=== PATIENT | female | born 1995 | race Caucasian/White ===

== ENCOUNTER 2018-05-13 21:26 | Emergency (ER) | payer OTHER ==
[~2018-05-13] VITALS: Ht 154.9 cm; Wt 85.7 kg
[2018-05-13 22:00] VITALS: Ht 154.9 cm; Wt 85.7 kg
[2018-05-13 23:19] VITALS: BP 108/78
== END 2018-05-13 23:19 | disposition home or self-care (01) ==
LOC: ED 21:26
DX: R51 Headache (principal)
CPT/HCPCS: J1885; J8597

== ENCOUNTER 2018-08-24 02:36 | Emergency (ER) | payer OTHER ==
[~2018-08-24] VITALS: Ht 154.9 cm; Wt 78.9 kg
[2018-08-24 02:52] VITALS: BP 131/87; Ht 154.9 cm; Wt 78.9 kg
== END 2018-08-24 03:28 | disposition home or self-care (01) ==
LOC: ED 02:36
DX: R20.2 Paresthesia of skin (principal); T50.995A Adverse effect of other drugs, medicaments and biological substances, initial encounter; Y92.89 Other specified places as the place of occurrence of the external cause
CPT/HCPCS: Q0162

== ENCOUNTER 2019-03-07 14:40 | Emergency (ER) | payer OTHER ==
[~2019-03-07] VITALS: Ht 154.9 cm; Wt 86.6 kg
[2019-03-07 15:01] VITALS: BP 107/74; Ht 154.9 cm; Wt 86.6 kg
== END 2019-03-07 16:48 | disposition home or self-care (01) ==
LOC: ED 14:40
DX: B34.9 Viral infection, unspecified (principal); G43.909 Migraine, unspecified, not intractable, without status migrainosus
CPT/HCPCS: J0780; J1885